=== PATIENT | male | born 1940 | race Caucasian/White ===

== ENCOUNTER 2024-04-06 11:34 | Emergency (ER) | payer BC, MEDICARE ==
[2024-04-06 11:38] VITALS: BP 158/99; PULSE 69; RESP 20; TEMP 97.3
[2024-04-06] MEDS: LORazepam 1 MG TAB PO STA (12:03)
--- NOTE | 2024-04-06 12:03 | ED ---
Anxiety HPI - General Chief Complaint: Anxiety Stated Complaint: Anxiety Time Seen by Provider: 04/06/24 12:02 Source: patient, family, RN notes reviewed Mode of arrival: ambulatory Limitations: no limitations - History of Present Illness Initial Comments: 83-year-old male presented to the ER with a chief complaint of anxiety. Patient is currently on summer vacation from [place] and is living out of a trailer. He states he gets extremely claustrophobic and feels like he is having an anxiety attack. He states he is normally able to manage this by going outside and keeping himself busy but due to the rain he has been unable to do so. States for the past 3 days his anxiety has been extremely increased due to this. He also reports multiple life stressors due to family issues. He states his son and [id number] recently and his daughter was recently diagnosed with lung cancer. Patient denies any suicidal or homicidal ideations. Denies any alcohol or drug use. Patient denies any fevers, chills, night sweats, headache, cough, congestion, chest pain, shortness of breath, abdominal pain or peripheral edema. - Related Data Home Medications: Previous Rx's Medication Instructions Recorded LORazepam [Ativan] 1 mg PO BID 3 Days #6 tab 04/06/24 Allergies/Adverse Reactions: Allergies Allergy/AdvReac Type Severity Reaction Status Date / Time Penicillins Allergy Rash/Hives Verified 04/06/24 11:38 Review of Systems ROS Statement: Those systems with pertinent positive or pertinent negative responses have been documented in the HPI. ROS Other: All systems not noted in ROS Statement are negative. Past Medical History Past Medical History: CVA/TIA, Hypertension History of Any Multi-Drug Resistant Organisms: None Reported Past Surgical History: No Surgical Hx Reported Past Psychological History: Anxiety Smoking Status: Never smoker Past Alcohol Use History: Occasional Past Drug Use History: None Reported General Exam Limitations: no limitations General appearance: alert, in no apparent distress Respiratory exam: Present: normal lung sounds bilaterally. Absent: respiratory distress, wheezes, rales, rhonchi, stridor Cardiovascular Exam: Present: regular rate, normal rhythm, normal heart sounds. Absent: systolic murmur, diastolic murmur, rubs, gallop, clicks Extremities exam: Present: normal inspection, full ROM, normal capillary refill. Absent: tenderness, pedal edema, joint swelling, calf tenderness Psychiatric exam: Present: normal affect, normal mood Skin exam: Present: warm, dry, intact, normal color. Absent: rash Course Vital Signs 04/06/24 11:35 Temperature 97.3 F L Pulse Rate 69 Respiratory 20 Rate Blood Pressure 158/99 O2 Sat by Pulse 97 Oximetry Medical Decision Making - Medical Decision Making Was pt. sent in by a medical professional or institution (, ENRIQUE, APPLICATION PROGRAMMER ANALYST, urgent care, hospital, or [facility]...) When possible be specific @ -No Did you speak to anyone other than the patient for history (EMS, parent, family, police, friend...)? What history was obtained from this source @ - aiding in HPI Did you review nursing and triage notes (agree or disagree)? Why? @ -I reviewed and agree with nursing and triage notes Were old charts reviewed (outside hosp., previous admission, EMS record, old EKG, old radiological studies, urgent care reports/EKG's, [facility] records)? Report findings @ -No old charts were reviewed Differential Diagnosis (chest pain, altered mental status, abdominal pain women, abdominal pain men, vaginal bleeding, weakness, fever, dyspnea, syncope, headache, dizziness, GI bleed, back pain, seizure, CVA, palpatations, mental health, musculoskeletal)? @ -Differential Mental Health: Depression, anxiety, bipolar, psychosis, schizophrenia, borderline personality, situational depression, adjustment disorder, behavioral disorder, brain tumor, malingering, substance abuse, encephalopathy, medication reaction, dementia, hypothyroidism, degenerative neurologic disorder, lupus.... This is not meant to be all-inclusive list EKG interpreted by me (3pts min.). @ -None X-rays interpreted by me (1pt min.). @ -None done CT interpreted by me (1pt min.). @ -None done U/S interpreted by me (1pt. min.). @ -None done What testing was considered but not performed or refused? (CT, X-rays, U/S, labs)? Why? @ -None What meds were considered but not given or refused? Why? @ -None Did you discuss the management of the patient with other professionals (professionals i.e. , ENRIQUE, APPLICATION PROGRAMMER ANALYST, lab, RT, psych nurse, social services counselor, cane loader, teacher, correction officer head, case investigator)? Give summary @ -No Was smoking cessation discussed for >3mins.? @ -No Was critical care preformed (if so, how long)? @ -No Were there social determinants of health that impacted care today? How? (Homelessness, low income, unemployed, alcoholism, drug addiction, transportation, low edu. Level, literacy, decrease access to med. care, alf, rehab)? @ -Patient currently is vacationing from [place]. Was there de-escalation of care discussed even if they declined (Discuss DNR or withdrawal of care, Hospice)? DNR status @ -No What co-morbidities impacted this encounter? (DM, HTN, Smoking, COPD, CAD, Cancer, CVA, ARF, Chemo, Hep., AIDS, mental health diagnosis, sleep apnea, morbid obesity)? @ -None Was patient admitted / discharged? Hospital course, mention meds given and route, prescriptions, significant lab abnormalities, going to OR and other pertinent info. @ -Discharge. 83-year-old male presenting to the ER with a chief complaint of anxiety. Patient states he is visiting for the summer as he currently resides in [place]. He also reports multiple life stressors currently affecting him. History and physical exam completed. Vitals stable. Patient in no signs of acute distress and nontoxic-appearing. Exam unremarkable. Patient received by mouth Ativan for symptom control, as symptoms believed to be caused by anxiety due to claustrophobia and life stressors. Upon reevaluation, patient resting comfortably in exam room in no signs of acute distress. I advised patient to contact PCP for exploring the option of antidepressant for halfway treatment. Ativan prescribed and I instructed patient to only take it during acute attacks. Extremely strict return parameters discussed. Patient discharged in stable condition with follow-up to PCP. Patient verbally expressed understanding and agreement with care plan. Case discussed with ED attending, Dr. Gonzales. Undiagnosed new problem with uncertain prognosis? @ -No Drug Therapy requiring intensive monitoring for toxicity (Heparin, Nitro, Insulin, Cardizem)? @ -No Were any procedures done? @ -No Diagnosis/symptom? @ -Anxiety Acute, or Chronic, or Acute on Chronic? @ -Acute Uncomplicated (without systemic symptoms) or Complicated (systemic symptoms)? @ -Uncomplicated Side effects of treatment? @ -No Exacerbation, Progression, or Severe Exacerbation? @ -No Poses a threat to life or bodily function? How? (Chest pain, [place], [place], pneumonia, PE, COPD, DKA, ARF, appy, cholecystitis, CVA, Diverticulitis, Homicidal, Suicidal, threat to staff... and all critical care pts) @ -No Disposition Clinical Impression: Acute anxiety Disposition: HOME SELF-CARE Condition: Stable Instructions (If sedation given, give patient instructions): Generalized Anxiety Disorder (ED) Additional Instructions: Follow-up with PCP. Return to the ER for any new or worsening symptoms. Only take Ativan for extreme anxiety. Prescriptions: LORazepam [Ativan] 1 mg PO BID 3 Days #6 tab Is patient prescribed a controlled substance at d/c from ED?: Yes When asked, does pt state using other controlled substances?: No If prescribed controlled substance>3 days was MAPS reviewed?: Prescribed <3 Days If opioid is for acute pain is fill amount 7 days or less?: Yes If Rx opioid, was Start Talking consent form obtained?: Yes Referrals: Nonstaff,Physician [Primary Care Provider] - 1-2 days Forms: Outpatient Therapy List, Outpatient Counseling, Area PCPs Time of Disposition: 12:53
== END 2024-04-06 13:00 | disposition home or self-care (01) ==
LOC: EC 11:34
DX: F41.9 Anxiety disorder, unspecified (principal); Z86.73 Personal history of transient ischemic attack (TIA), and cerebral infarction without residual deficits; Z88.0 Allergy status to penicillin
CPT/HCPCS: 99283

== ENCOUNTER 2024-04-10 16:48 | Emergency (ER) | payer MEDICARE, BC ==
[2024-04-10 17:08] VITALS: BP 157/91; PULSE 67; RESP 18; TEMP 97.8
--- NOTE | 2024-04-10 17:09 | ED ---
Recheck HPI - General Stated Complaint: Medication refill Time Seen by Provider: 04/10/24 17:00 Source: patient, family, RN notes reviewed - History of Present Illness Initial Comments: This is an 83 year old male who presents to the ED with chief complaint of a medication refill. Patient was seen in the [facility] a few days ago where he was diagnsed with JEN and given a prescription for ativan to take as needed until he is able to get in with his PCP for fruther eval. patient is out of the prescribed medication and presents for a refill until his appointment on Tuesday. patient states that he has been taking the medication as needed and has been grately helping his symptoms. no other acute complaints at this time. - Related Data Previous Rx's Medication Instructions Recorded LORazepam [Ativan] 1 mg PO BID 3 Days #6 tab 04/06/24 LORazepam [Ativan] 1 mg PO BID 3 Days #6 tab 04/10/24 Allergies Allergy/AdvReac Type Severity Reaction Status Date / Time Penicillins Allergy Rash/Hives Verified 04/10/24 17:08 Review of Systems ROS Statement: Those systems with pertinent positive or pertinent negative responses have been documented in the HPI. ROS Other: All systems not noted in ROS Statement are negative. Past Medical History Past Medical History: CVA/TIA, Hypertension History of Any Multi-Drug Resistant Organisms: None Reported Past Surgical History: No Surgical Hx Reported Past Psychological History: Anxiety Smoking Status: Never smoker Past Alcohol Use History: Occasional Past Drug Use History: None Reported General Exam General appearance: alert, in no apparent distress Head exam: Present: atraumatic, normocephalic, normal inspection Eye exam: Present: normal appearance, PERRL, EOMI. Absent: scleral icterus, conjunctival injection, periorbital swelling ENT exam: Present: normal exam, mucous membranes moist Neck exam: Present: normal inspection. Absent: tenderness, meningismus, lymphadenopathy Respiratory exam: Present: normal lung sounds bilaterally. Absent: respiratory distress, wheezes, rales, rhonchi, stridor Cardiovascular Exam: Present: regular rate, normal rhythm, normal heart sounds. Absent: systolic murmur, diastolic murmur, rubs, gallop, clicks GI/Abdominal exam: Present: soft, normal bowel sounds. Absent: distended, tenderness, guarding, rebound, rigid Extremities exam: Present: normal inspection, full ROM, normal capillary refill. Absent: tenderness, pedal edema, joint swelling, calf tenderness Psychiatric exam: Present: normal affect, normal mood Skin exam: Present: warm, dry, intact, normal color. Absent: rash Course Vital Signs 04/10/24 17:05 Temperature 97.8 F Pulse Rate 67 Respiratory 18 Rate Blood Pressure 157/91 O2 Sat by Pulse 97 Oximetry Medical Decision Making - Medical Decision Making Was pt. sent in by a medical professional or institution (, PA, DRY LUMBER GRADER, urgent care, hospital, or [facility]...) When possible be specific @ -No Did you speak to anyone other than the patient for history (EMS, parent, family, police, friend...)? What history was obtained from this source @ -No Did you review nursing and triage notes (agree or disagree)? Why? @ -I reviewed and agree with nursing and triage notes Were old charts reviewed (outside hosp., previous admission, EMS record, old EKG, old radiological studies, urgent care reports/EKG's, [facility] records)? Report findings @ -reviewed patient's previous emergency department visit where he was diagnosed with generalized ID disorder and discharged with Ativan to take as needed for acute anxiety attacks. Differential Diagnosis (chest pain, altered mental status, abdominal pain women, abdominal pain men, vaginal bleeding, weakness, fever, dyspnea, syncope, headache, dizziness, GI bleed, back pain, seizure, CVA, palpatations, mental health, musculoskeletal)? @ -Differential Mental Health Depression, anxiety, bipolar, psychosis, schizophrenia, borderline personality, situational depression, adjustment disorder, behavioral disorder, brain tumor, malingering, substance abuse, encephalopathy, medication reaction, dementia, hypothyroidism, degenerative neurologic disorder, lupus.... This is not meant to be all-inclusive list EKG interpreted by me (3pts min.). @ -None X-rays interpreted by me (1pt min.). @ -None done CT interpreted by me (1pt min.). @ -None done U/S interpreted by me (1pt. min.). @ -None done What testing was considered but not performed or refused? (CT, X-rays, U/S, labs)? Why? @ -None What meds were considered but not given or refused? Why? @ -None Did you discuss the management of the patient with other professionals (professionals i.e. , PA, DRY LUMBER GRADER, lab, RT, psych nurse, social security benefits interviewer, impersonator character, teacher, hydrographical technical officer, case consultant)? Give summary @ -No Was smoking cessation discussed for >3mins.? @ -No Was critical care preformed (if so, how long)? @ -No Were there social determinants of health that impacted care today? How? (Homelessness, low income, unemployed, alcoholism, drug addiction, transportation, low edu. Level, literacy, decrease access to med. care, longterm, rehab)? @ -No Was there de-escalation of care discussed even if they declined (Discuss DNR or withdrawal of care, Hospice)? DNR status @ -No What co-morbidities impacted this encounter? (DM, HTN, Smoking, COPD, CAD, Cancer, CVA, ARF, Chemo, Hep., AIDS, mental health diagnosis, sleep apnea, morbid obesity)? @ -None Was patient admitted / discharged? Hospital course, mention meds given and route, prescriptions, significant lab abnormalities, going to OR and other pertinent info. @ -discharge. 83-year-old male with encounter for medication refill. Comprehensive review of systems was completed with no acute findings. Physical examination no acute findings. Patient will be provided a prescription for Ativan for 3 days instructed to take this medication only as needed. Patient states that he has an appointment scheduled with his primary care provider on Tuesday for further evaluation. All questions answered at bedside and strict return parameters miles with the patient he is verbalized understanding. Patient is stable for discharge. Case discussed with Dr. Melendez. Undiagnosed new problem with uncertain prognosis? @ -No Drug Therapy requiring intensive monitoring for toxicity (Heparin, Nitro, Insulin, Cardizem)? @ -No Were any procedures done? @ -No Diagnosis/symptom? @ -anxiety disorder, encounter for medication refill. Acute, or Chronic, or Acute on Chronic? @ -acute Uncomplicated (without systemic symptoms) or Complicated (systemic symptoms)? @ -uncomplicated Side effects of treatment? @ -No Exacerbation, Progression, or Severe Exacerbation? @ -No Poses a threat to life or bodily function? How? (Chest pain, [place], [place], pneumonia, PE, COPD, DKA, ARF, appy, cholecystitis, CVA, Diverticulitis, Homicidal, Suicidal, threat to staff... and all critical care pts) @ -No Disposition Clinical Impression: Medication refill Disposition: HOME SELF-CARE Condition: Good Instructions (If sedation given, give patient instructions): Lorazepam (By mouth) Additional Instructions: Return to the emergency department if your symptoms worsen or do not improve. Take medication only as needed for acute anxiety. Follow-up as scheduled on Tuesday. Prescriptions: LORazepam [Ativan] 1 mg PO BID 3 Days #6 tab Is patient prescribed a controlled substance at d/c from ED?: No Referrals: Nonstaff,Physician [Primary Care Provider] - 1-2 days Time of Disposition: 17:08
== END 2024-04-10 17:40 | disposition home or self-care (01) ==
LOC: EC 16:48
DX: Z76.0 Encounter for issue of repeat prescription (principal); F41.9 Anxiety disorder, unspecified; Z88.0 Allergy status to penicillin
CPT/HCPCS: 99282